=== PATIENT | female | born 1970 | race Caucasian/White ===

== ENCOUNTER 2019-02-23 22:51 | Emergency (ER) | payer OTHER ==
[~2019-02-23] VITALS: Ht 162.6 cm; Wt 89.8 kg
[2019-02-23 22:59] VITALS: Ht 162.6 cm; Wt 89.8 kg
[2019-02-24 01:36] VITALS: BP 136/78
== END 2019-02-24 01:36 | disposition home or self-care (01) ==
LOC: ED 22:51
DX: R51 Headache (principal); R11.0 Nausea
CPT/HCPCS: J1200; J2765

== ENCOUNTER 2020-10-29 19:39 | Emergency (ER) | payer OTHER ==
[~2020-10-29] VITALS: Ht 165.1 cm; Wt 102.1 kg
[~2020-10-29 19:39] MED LIST: D-10001 TAB PO; DECADRON6 MG PO; ELIQUIS2.5 MG PO; LEADER MELATONIN5 MG PO; LEVO-T200 MCG PO; MUCINEX600 MG PO; ORAZINC 220220 MG GT; PROAIR HFA8.5 GM INH; SYN1 PO; VENTOLIN H0.09 MG/A1 IH; VITAMIN D22000 I1 PO; VITC PO; ZINC SULFATE220 MG PO
[2020-10-29 20:08] VITALS: Ht 165.1 cm; Wt 102.1 kg
[2020-10-29 20:56] LABS: BASOPHIL % 0.5 % (0.2-1.3); PLATELET COUNT 319 x10^3mcL (179-408)
[2020-10-29 20:57] LABS: RED CELL DISTRIBUTION WIDTH 15.8 % (12.3-17.7)
[2020-10-29 21:08] LABS: CALCIUM 8.1 mg/dL (8.5-10.1); CARBON DIOXIDE 29.2 mmol/L (21-32); CHLORIDE SERUM 101 mmol/L (98-107); GFR1 > 60 mL/min; GLUCOSE SERUM 110 mg/dL (74-106); SODIUM SERUM 138 mmol/L (136-145)
[2020-10-29 21:12] LABS: ALBUMIN 3.6 g/dL (3.4-5.0); ALKALINE PHOSPHATASE 70 U/L (46-116); ALT/SGPT 110 U/L (14-59); AST/SGOT 65 U/L (15-37); BILIRUBIN TOTAL 0.3 mg/dL (0.20-1.00); TOTAL PROTEIN, SERUM 7.7 g/dL (6.4-8.2)
[2020-10-30] VITALS: BP 134/90
== END 2020-10-30 | disposition home or self-care (01) ==
LOC: ED 19:39
PROVIDERS: Emergency Medicine
DX: R00.2 Palpitations (principal); R00.0 Tachycardia, unspecified; E11.9 Type 2 diabetes mellitus without complications
CPT/HCPCS: 85378; Q9967